=== PATIENT | female | born 2000 | race American Indian/Alaskan Native ===

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

== ENCOUNTER 2018-10-28 20:50 | Emergency (ER) | payer MEDICAID ==
[2018-10-28 21:13] VITALS: BMI 38.2
[2018-10-28 21:35] LABS: SQUAMOUS EPITHIAL 33 /hpf (0-5); URINE BACTERIA OCC (<OCC); URINE BILIRUBIN NEGATIVE (NEGATIVE); URINE BLOOD NEGATIVE (NEGATIVE); URINE CLARITY Hazy (Clear); URINE COLOR Yellow (YELLOW); URINE GLUCOSE (UA) NORMAL (Normal); URINE LEUKOCYTE ESTERASE 3+ Leu/uL (Negative); URINE PROTEIN 1+ mg/dL (NEGATIVE)
[2018-10-28 21:45] LABS: BARBITURATES, UR NEGATIVE (NEGATIVE); BENZODIAZEPINES, UR NEGATIVE (NEGATIVE); OPIATES, UR NEGATIVE (NEGATIVE); PHENCYCLIDINE, UR NEGATIVE (NEGATIVE)
--- NOTE | 2018-10-28 21:51 | OBHP ---
Datetime: 10/28/2018 21:43 IP Adm Impression: Term, intrauterine IP Admit Plan: Discharge home Admit Comment, IP Provider: with IUP at 37+3 weeks? by LMP 02/08 per patient [facility]? 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
[2018-10-29 02:06] VITALS: BP 105/58; PULSE 99; RESP 19; TEMP 97.9
== END 2018-10-28 21:55 | disposition home or self-care (01) ==
LOC: C.EROB 20:50
DX: O47.1 False labor at or after 37 completed weeks of gestation (principal); Z3A.37 37 weeks gestation of pregnancy